=== PATIENT | female | born 1950 | race American Indian/Alaskan Native ===

== ENCOUNTER 2018-03-10 09:10 | Inpatient (IN) | payer MEDICARE, MEDICAID, OTHER ==
[2018-03-01 14:21] LABS: BASOPHILS % (AUTO) 0.7 % (0-1); EOSINOPHILS # (AUTO) 0.2 X10'3 (0-0.9); EOSINOPHILS % (AUTO) 2.3 % (0-6); LYMPHOCYTES # (AUTO) 1.6 X10'3 (1.1-4.8); MEAN CORPUSCULAR HGB CONC 33.5 % (33.0-36.5); MEAN CORPUSCULAR VOLUME 83.7 FL (78-98); MEAN PLATELET VOLUME 9.7 FL (7.4-10.4); MONOCYTES # (AUTO) 0.5 X10'3 (0-0.9); MONOCYTES % (AUTO) 7.5 % (2-12); NEUTROPHILS # (AUTO) 4.2 X10'3 (1.8-7.7); NEUTROPHILS % (AUTO) 64.5 % (42-75); PRE OP HEMATOCRIT 41.5 % (35.0-45.0); PRE OP HEMOGLOBIN 13.9 g/dL (12.0-16.0); PRE OP PLATELET COUNT 211 X10'3 (140-440); RED BLOOD COUNT 4.96 X10'6 (4.20-5.60); RED CELL DISTRIBUTION WIDTH 14.1 % (11.5-14.5)
[2018-03-01 14:34] LABS: HEMOGLOBIN A1C 6.1 % (4.5-6.2)
[2018-03-01 14:43] LABS: ALBUMIN 3.3 G/DL (3.4-5.0); ALBUMIN/GLOBULIN RATIO 0.8 (1.1-1.5); ALKALINE PHOSPHATASE 90 IU/L (46-116); BLOOD UREA NITROGEN 25 MG/DL (7-18); BUN/CREATININE RATIO 37.9 (6.6-38.0); CALCIUM 8.7 MG/DL (8.5-10.1); CHLORIDE 105 MMOL/L (99-107); CREATININE 0.66 MG/DL (0.40-0.90); PRE OP ALT 32 U/L (30-65); PRE OP ANION GAP 9 (8-16); PRE OP AST 22 U/L (10-37); PRE OP BILIRUB, TOTAL 0.8 MG/DL (0.0-1.0); PRE OP GLUCOSE 99 MG/DL (70-104); PRE OP POTASSIUM 3.6 MMOL/L (3.4-5.1); PRE OP SODIUM 140 MMOL/L (135-145); TOTAL PROTEIN 7.4 G/DL (6.4-8.2); eGFR 90 ML/MIN
[2018-03-10] VITALS (16 sets, daily range): BP systolic 97–163; BP diastolic 53–106
[~2018-03-10] VITALS: Ht 156.2 cm; Wt 104.5 kg
[~2018-03-10 09:10] MED LIST: CLOP75TA33 PO; DOCUMENT DATE & TIME OF BETA-BLOCKER PO ONE; GLU850T PO; HYDR25TA4 PO; LEVO200T8 PO; LOSA50TA3 PO; MAGN400T39; METO-539 PO; PANT-47 PO; RA COL-RITE; SIMV20TA5 PO; VANCOMYCIN INJ 1000 MG in NORMAL SALINE 250ml IV.SOLN IV ONE; ZOLP10TA5 PO; clindamycin phosphate inj 900 MG in normal saline 50ml IV soln 44 ML IV ONE; clindamycin-Cleocin 900mg/D5W 50 ML IV ONE; famotidine 20mg tablet PO ONE; ringers solution, lacted 1,000 ML IV SCH; vancomycin inj 1,500 MG in normal saline 300ml IV soln IV ONE
[2018-03-10] MEDS ORDERED: meperidine/PF 25mg/ml syringe IV PRN ×3 (11:00)
[2018-03-10] MEDS ORDERED: proCHLORperazine 10 MG/2 ml inj IV PRN (11:00)
[2018-03-10] MEDS ORDERED: ondansetron/PF 4mg/2ml inj IV PRN ×2 (11:00→14:50)
[2018-03-10] MEDS ORDERED: ringers solution, lacted 1,000 ML IV SCH (11:00)
[2018-03-10] MEDS ORDERED: morphine 4 MG/ML inj SYRINge IV PRN ×2 (11:00)
[2018-03-10] MEDS ORDERED: ketorolac trometh. 30mg/ml inj. ONE (11:43)
[2018-03-10] MEDS ORDERED: ROPIVAcaine 0.5% (5mg/ml) 30ml vial ONE ×2 (11:43→12:53)
[2018-03-10] MEDS ORDERED: vancomycin 1,000mg inj ONE (11:43)
[2018-03-10] MEDS ORDERED: tranexamic acid inj. 1,000 MG in normal saline 100ml IV soln 100 ML IV ONE ×4 (12:05)
[2018-03-10] MEDS ORDERED: sevoflurane 250ml liquid IH ONE (12:32)
[2018-03-10] MEDS ORDERED: ondansetron/PF 4mg/2ml inj ONE (12:32)
[2018-03-10] MEDS ORDERED: dexamethasone sod phosphate 10mg/ml inj ONE (12:32)
[2018-03-10] MEDS ORDERED: midazolam 2 mg/2 ml injection ONE (12:39)
[2018-03-10] MEDS ORDERED: fentaNYL/PF 50MCG/1 ML 2ML syringe ONE (12:39)
[2018-03-10] MEDS ORDERED: LIDOcaine 1%/PF 5ML 10 MG/ML VIAL ONE (12:53)
[2018-03-10] MEDS ORDERED: propofol inj 20 ML IV ONE (12:53)
[2018-03-10] MEDS ORDERED: ROPIVAcaine 0.5% (5mg/ml) 30ml vial IJ ONE (14:12)
[2018-03-10] MEDS ORDERED: ketorolac trometh. 30mg/ml inj. IM ONE (14:13)
[2018-03-10] MEDS ORDERED: acetaminophen 325mg tablet PO PRN (14:50)
[2018-03-10] MEDS ORDERED: bisacodyl 10mg suppository rectal RC PRN (14:50)
[2018-03-10] MEDS ORDERED: diphenhydrAMINE 25mg capsule PO PRN ×2 (14:50)
[2018-03-10] MEDS ORDERED: HYDROmorphone 1 mg/ml syringe IV PRN ×2 (14:50)
[2018-03-10] MEDS ORDERED: magnesium hydroxide 30ml (MOM) UD suspension PO PRN (14:50)
[2018-03-10] MEDS ORDERED: oxyCODONE IR 5mg (immed. release) tablet PO PRN ×2 (14:50)
[2018-03-10] MEDS ORDERED: ceFAZolin 1GM/D5W- ADD-VANTAGE 50 ML IV SCH (16:00)
[2018-03-10] MEDS: clindamycin 600mg/D5W 50ml IVPB IV SCH (16:40)
[2018-03-10] MEDS: potassium cl 20mEq in 1/2 NS 1,000 ML IV SCH ×2 (16:40→22:46)
[2018-03-10] MEDS ORDERED: vancomycin/NS 1 GM ADD-VANTAGE 250 ML IV SCH (20:00)
[2018-03-10] MEDS: metFORMIN 850mg tablet PO SCH (20:32)
[2018-03-10] MEDS: acetaminophen 325mg tablet PO SCH (20:32)
[2018-03-10] MEDS: gabapentin 300mg capsule PO SCH (20:32)
[2018-03-10] MEDS: ketorolac tromethamine 15mg/ml inj. IV SCH (20:32)
[2018-03-10] MEDS ORDERED: zolpidem 5mg tablet PO SCH (21:00)
[2018-03-10] MEDS ORDERED: atorvastatin 20mg tablet PO SCH (21:00)
[2018-03-10] MEDS ORDERED: sennosides 8.6mg tablet PO SCH (21:00)
[2018-03-10] MEDS ORDERED: loperamide 2mg capsule PO PRN (21:35)
[2018-03-11] MEDS: clindamycin 600mg/D5W 50ml IVPB IV SCH (00:03)
[2018-03-11] MEDS: ketorolac tromethamine 15mg/ml inj. IV SCH ×3 (01:48→14:00)
[2018-03-11] MEDS: acetaminophen 325mg tablet PO SCH ×3 (01:48→14:00)
[2018-03-11 02:00] VITALS: BP 113/62
[2018-03-11] MEDS: potassium cl 20mEq in 1/2 NS 1,000 ML IV SCH ×2 (05:11→14:46)
[2018-03-11 05:21] LABS: BASOPHILS % (AUTO) 0.6 % (0-1); EOSINOPHILS # (AUTO) 0.1 X10'3 (0-0.9); EOSINOPHILS % (AUTO) 1.4 % (0-6); HEMATOCRIT 37.2 % (35.0-45.0); HEMOGLOBIN 12.2 g/dl (12.0-16.0); MEAN CORPUSCULAR HEMOGLOBIN 27.7 PG (27.0-31.0); MEAN CORPUSCULAR HGB CONC 32.9 % (33.0-36.5); MEAN CORPUSCULAR VOLUME 84.3 FL (78-98); MEAN PLATELET VOLUME 9.6 FL (7.4-10.4); MONOCYTES # (AUTO) 0.6 X10'3 (0-0.9); MONOCYTES % (AUTO) 6.9 % (2-12); NEUTROPHILS # (AUTO) 6.6 X10'3 (1.8-7.7); NEUTROPHILS % (AUTO) 79.1 % (42-75); PLATELET COUNT 178 X10'3 (140-440); RED BLOOD COUNT 4.41 X10'6 (4.20-5.60); RED CELL DISTRIBUTION WIDTH 14.1 % (11.5-14.5); WHITE BLOOD COUNT 8.3 X10'3 (4.5-11.0)
[2018-03-11 05:35] LABS: ANION GAP 12 (8-16); CHLORIDE 109 MMOL/L (99-107); POTASSIUM 4.3 MMOL/L (3.5-5.1); SODIUM 144 MMOL/L (135-145); TOTAL CARBON DIOXIDE 23.5 MMOL/L (24-32)
[2018-03-11 06:00] VITALS: BP 115/59
[2018-03-11] MEDS ORDERED: levoTHYROXINE 100mcg tablet PO SCH (07:00)
[2018-03-11] MEDS ORDERED: losartan 50mg tablet PO SCH (08:00)
[2018-03-11] MEDS ORDERED: HYDROchlorothiazide 25mg tablet PO SCH (08:00)
[2018-03-11] MEDS ORDERED: pantoprazole 40mg Tablet.DR PO SCH (08:00)
[2018-03-11] MEDS ORDERED: metoprolol succinate 25mg (24-HOUR) SR. Tablet PO SCH (08:00)
[2018-03-11] MEDS ORDERED: clopidogrel 75mg tablet PO SCH (08:00)
[2018-03-11] MEDS ORDERED: magnesium oxide 400mg tablet PO SCH (08:00)
[2018-03-11] MEDS ORDERED: aspirin 325mg tablet PO SCH (08:30)
[2018-03-11] MEDS: gabapentin 300mg capsule PO SCH ×2 (08:35→13:00)
[2018-03-11] MEDS: metFORMIN 850mg tablet PO SCH (08:36)
[2018-03-11] MEDS ORDERED: ASPI-1 PO (10:12)
[2018-03-11] MEDS ORDERED: celeCOXIB 100mg capsule PO SCH (20:00)
[2018-03-12] MEDS ORDERED: acetaminophen 325mg tablet PO PRN (14:50)
== END 2018-03-11 16:08 | disposition home or self-care (01) | DRG 483 ==
LOC: PAS IN 09:10 → EDSTATUS 12:15 → ORTHO 4S 16:00
PROVIDERS: ADMIT Orthopaedic Surgery; ATTEND Orthopaedic Surgery
PROC: 0LS30ZZ Reposition Right Upper Arm Tendon, Open Approach (ICD-10-PCS; 2018-03-10)
PROC: 3E0T3BZ Introduction of Anesthetic Agent into Peripheral Nerves and Plexi, Percutaneous Approach (ICD-10-PCS; 2018-03-10)
PROC: 0RRJ00Z Replacement of Right Shoulder Joint with Reverse Ball and Socket Synthetic Substitute, Open Approach (ICD-10-PCS; principal; 2018-03-10 12:32)
DX: M19.011 Primary osteoarthritis, right shoulder (principal); Z68.41 Body mass index [BMI] 40.0-44.9, adult; M75.121 Complete rotator cuff tear or rupture of right shoulder, not specified as traumatic; M65.811 Other synovitis and tenosynovitis, right shoulder; I10 Essential (primary) hypertension; E66.01 Morbid (severe) obesity due to excess calories; G47.30 Sleep apnea, unspecified; E11.9 Type 2 diabetes mellitus without complications
CPT/HCPCS: 36415; 80051; 80053; 82948; 83036; 84443; 85025; 85610; 85730; 87070; 93005; 97116; 97161; 97530; A4565; A7000; G0378; J1100; J1170; J1885; J2001; J2250; J2405; J2704; J2795; J3010; J3370; J3490; J7030; J7040; J7120